=== PATIENT | male | born 1965 | race Caucasian/White ===

== ENCOUNTER 2019-03-14 07:32 | Emergency (ER) | payer OTHER ==
[2019-03-14] MEDS ORDERED: Aspirin 81 MG Tab.Chew PO ONE (07:46)
--- NOTE | 2019-03-14 07:46 | EDM.PDOC ---
ED HPI GENERAL MEDICAL PROBLEM - General Stated Complaint: CHEST PAIN Time Seen by Provider: 03/14/19 07:32 Source of Information: Reports: Patient, Family History Limitations: Reports: No Limitations - History of Present Illness INITIAL COMMENTS - FREE TEXT/NARRATIVE: 53 y.o.w.m smokes daily and drinks daily a 6 pack of beer. He is a [employer]. He called 911 last night, the EMS checked him out and said he has anxiety. Pt decided to stay home. This Morning, the pt noticed again chest pain with pain with pressure going down his left arm. Pt"s neighbor brought him to the the ED. Pt stated, he has no pain but burning sensations ant chest and left arm. Pt is using marijuana daily. His last ETOH intake was last night at about 10 pm. Pt says he is very anxious. No N/V/D, no dizziness, no diaphoresis. Pt was diaphoretic last week at one time, no CP at that time. No SOP, no other acute med. issues. BP 150/95 RR 18 Pulse ox 98% on RA, Pulse 98 Temp 37.0 Onset Date: 03/13/19 Onset Time: 22:55 Duration: Hour(s):, Getting Worse, Intermittent Location: Reports: Chest Quality: Reports: Burning, Dull Severity: Moderate Improves with: Reports: Medication Worsens with: Reports: None Context: Reports: Other Associated Symptoms: Reports: Chest Pain, Diaphoresis (a few days ago) - Related Data Allergies Allergy/AdvReac Type Severity Reaction Status Date / Time cephalexin Allergy Redness Verified 03/14/19 08:24 cyclobenzaprine Allergy Anxiety Verified 03/14/19 08:24 [From Flexeril] dextromethorphan Allergy Anxiety Verified 03/14/19 08:24 morphine Allergy Itching Verified 03/14/19 08:24 Home Meds: Home Meds Gabapentin [Neurontin] 1,800 mg PO DAILY 03/14/19 [History] Metoprolol Succinate 200 mg PO DAILY 03/14/19 [History] Omeprazole 10 mg PO DAILY 03/14/19 [History] buPROPion [Wellbutrin] 75 mg PO BEDTIME 03/14/19 [History] ED ROS GENERAL - Review of Systems Review Of Systems: See Below Constitutional: Reports: No Symptoms HEENT: Reports: Other (H/O basal cell CA) Respiratory: Reports: No Symptoms Cardiovascular: Reports: Chest Pain (with left arm numbness) Endocrine: Reports: No Symptoms GI/Abdominal: Reports: No Symptoms : Reports: No Symptoms Musculoskeletal: Reports: No Symptoms Skin: Reports: No Symptoms Neurological: Reports: No Symptoms Psychiatric: Reports: No Symptoms Hematologic/Lymphatic: Reports: No Symptoms Immunologic: Reports: No Symptoms ED EXAM, GENERAL - Physical Exam Exam: See Below Exam Limited By: No Limitations General Appearance: Alert, WD/WN, Mild Distress Eye Exam: Bilateral Eye: Normal Inspection Ears: Normal External Exam Ear Exam: Bilateral Ear: Auricle Normal Nose: Normal Mucosa, No Blood, Other (Surgigal wound from a Skin Bx) Throat/Mouth: Normal Lips, Normal Voice, No Airway Compromise Head: Atraumatic, Normocephalic Neck: Normal Inspection, Supple, Non-Tender Respiratory/Chest: No Respiratory Distress, Lungs Clear, Normal Breath Sounds, Chest Non-Tender Cardiovascular: Normal Peripheral Pulses, Regular Rate, Rhythm, No Edema, No Gallop, No Murmur, No Rub Peripheral Pulses: 1+: Brachial (R) GI/Abdominal: Normal Bowel Sounds, Soft, Non-Tender, No Organomegaly, No Mass, Pelvis Stable (Male) Exam: Deferred Rectal (Males) Exam: Deferred Back Exam: Normal Inspection, Full Range of Motion Extremities: Normal Inspection, Normal Range of Motion, Non-Tender Neurological: Alert, Oriented, CN II-XII Intact, Normal Cognition, Normal Gait Psychiatric: Normal Affect, Anxious, Other (ETOH with drawel) Skin Exam: Warm, Dry, Normal Color, No Rash, Wound/Incision (Surgical wound right nose) Lymphatic: No Adenopathy EKG INTERPRETATION EKG Date: 03/14/19 Time: 07:35 Rhythm: NSR Rate (Beats/Min): 98 [place]: Normal P-Wave: Present QRS: Normal ST-T: Normal QT: Normal Comparison: NA - No Prior EKG (2nd ECG taken at 10.38: NSR Rate 90 NV [address]/T wave changes) EKG Interpretation Comments: 2nd EC03/14/2019 10.38 NSR. Rate 90 NV [address]Tc [address]/T wave changes Course - Vital Signs Text/Narrative:: 53 y.o.w.m smokes daily and drinks daily a 6 pack of beer. He is a [employer]. He called 911 last night, the EMS checked him out and said he has anxiety. Pt decided to stay home. This Morning, the pt noticed again chest pain with pain with pressure going down his left arm. Pt"s neighbor brought him to the the ED. Pt stated, he has no pain but burning sensations ant chest and left arm. Pt is using marijuana daily. His last ETOH intake was last night at about 10 pm. Pt says he is very anxious. No N/V/D, no dizziness, no diaphoresis. Pt was diaphoretic last week at one time, no CP at that time. No SOP, no other acute med. issues. BP 150/95 RR 18 Pulse ox 98% on RA, Pulse 98 Temp 37.0 PE: WNWD W M with ETOH withdrawal, Chest and left arm "burning" Imaging: CXR: NAD Labs: ETOH 0.24 UDS pos for Marijuana, Troponin: 0.017 at 7.30am and 10.20am ( 2 tests) CBC nl except MCV was 98 HCT 54 BMP was NL except GLC was 119 Ca 8.5 D Dimer was nl BUN/CR ration was 6.7 Impression: Atypical chest pain, ETOH withdrawal, anxiety UDS positive for Marijuana, H/O ETOH dependency Tx: NS. Thiamin, Folic acid and MVT. Ativan 2 mg total, ASA on arrival Last Recorded V/S: Last Vital Signs Temp 37.0 C 03/14/19 07:35 Pulse 98 03/14/19 07:35 Resp 18 03/14/19 07:35 BP 150/95 H 03/14/19 07:35 Pulse Ox 98 03/14/19 07:35 - Orders/Labs/Meds Orders: Active Orders 24 hr Category Date Time Status EKG Documentation Completion [RC] ASDIRECTED Care 03/14/19 07:51 Active EKG Documentation Completion [RC] ASDIRECTED Care 03/14/19 10:28 Active TROPONIN I [CHEM] Stat Lab 03/14/19 10:28 Ordered Sodium Chloride 0.9% [Normal Saline] 1,000 ml Med 03/14/19 08:30 Active IV ASDIRECTED EKG 12 Lead [EK] Routine Ther 03/14/19 07:50 Ordered EKG 12 Lead [EK] Routine Ther 03/14/19 10:28 Ordered Medication Orders Sodium Chloride (Normal Saline) 1,000 mls @ 999 mls/hr IV ASDIRECTED SANDY Last Admin: 03/14/19 08:15 Dose: 999 mls/hr Labs: Laboratory Tests 03/14/19 03/14/19 03/14/19 Range/Units 07:55 07:55 07:55 WBC 6.2 (4.5-12.0) X10-3/uL RBC 5.30 (4.30-5.75) x10(6)uL Hgb 17.7 (13.5-17.8) g/dL Hct 52.5 H (30.0-51.3) % MCV 98.9 H (80-96) fL MCH 33.3 (27.7-33.6) pg MCHC 33.7 (32.2-35.4) g/dL RDW 15.3 (11.5-15.5) % Plt Count 284 (125-369) X10(3)uL MPV 8.0 (7.4-10.4) fL Neut % (Auto) 47.7 (46-82) % Lymph % (Auto) 38.7 H (13-37) % Cottle % (Auto) 10.4 (4-12) % Eos % (Auto) 2 (1.0-5.0) % Baso % (Auto) 1 (0-2) % Neut # (Auto) 3.0 (1.6-8.3) # Lymph # (Auto) 2.4 (0.6-5.0) # Cottle # (Auto) 0.6 (0.0-1.3) # Eos # (Auto) 0.1 (0.0-0.8) # Baso # (Auto) 0.1 (0.0-0.2) # PT 10.4 (8.7-11.1) INR 1.07 (0.89-1.13) D-Dimer, Quantitative 0.54 (0.0-0.59) mg/LFEU Sodium 140 (135-145) mmol/L Potassium 3.9 (3.5-5.3) mmol/L Chloride 101 (100-110) mmol/L Carbon Dioxide 23 (21-32) mmol/L BUN 8 (7-18) mg/dL Creatinine 1.2 (0.70-1.30) mg/dL Est Cr Clr Drug Dosing TNP Estimated GFR (MDRD) > 60 (>60) BUN/Creatinine Ratio 6.7 L (9-20) Glucose 119 H (80-116) mg/dL Calcium 8.5 L (8.6-10.2) mg/dL Troponin I (<0.017-0.056) ng/mL TSH, Ultra Sensitive (0.36-3.74) IU/mL Urine Opiates Screen (NEGATIVE) Ur Oxycodone Screen (NEGATIVE) Ur Propoxyphene Screen (NEGATIVE) Ur Barbituates Screen (NEGATIVE) Ur Tricyclics Screen (NEGATIVE) Ur Phencyclidine Scrn (NEGATIVE) Ur Amphetamine Screen (NEGATIVE) Urine MDMA Screen (NEGATIVE) U Benzodiazepines Scrn (NEGATIVE) U Cocaine Metab Screen (NEGATIVE) U Marijuana (THC) Screen (NEGATIVE) Ethyl Alcohol (<0.03) % 03/14/19 03/14/19 03/14/19 Range/Units 07:55 07:55 07:55 WBC (4.5-12.0) X10-3/uL RBC (4.30-5.75) x10(6)uL Hgb (13.5-17.8) g/dL Hct (30.0-51.3) % MCV (80-96) fL MCH (27.7-33.6) pg MCHC (32.2-35.4) g/dL RDW (11.5-15.5) % Plt Count (125-369) X10(3)uL MPV (7.4-10.4) fL Neut % (Auto) (46-82) % Lymph % (Auto) (13-37) % Cottle % (Auto) (4-12) % Eos % (Auto) (1.0-5.0) % Baso % (Auto) (0-2) % Neut # (Auto) (1.6-8.3) # Lymph # (Auto) (0.6-5.0) # Cottle # (Auto) (0.0-1.3) # Eos # (Auto) (0.0-0.8) # Baso # (Auto) (0.0-0.2) # PT (8.7-11.1) INR (0.89-1.13) D-Dimer, Quantitative (0.0-0.59) mg/LFEU Sodium (135-145) mmol/L Potassium (3.5-5.3) mmol/L Chloride (100-110) mmol/L Carbon Dioxide (21-32) mmol/L BUN (7-18) mg/dL Creatinine (0.70-1.30) mg/dL Est Cr Clr Drug Dosing Estimated GFR (MDRD) (>60) BUN/Creatinine Ratio (9-20) Glucose (80-116) mg/dL Calcium (8.6-10.2) mg/dL Troponin I < 0.017 L (<0.017-0.056) ng/mL TSH, Ultra Sensitive 2.67 (0.36-3.74) IU/mL Urine Opiates Screen (NEGATIVE) Ur Oxycodone Screen (NEGATIVE) Ur Propoxyphene Screen (NEGATIVE) Ur Barbituates Screen (NEGATIVE) Ur Tricyclics Screen (NEGATIVE) Ur Phencyclidine Scrn (NEGATIVE) Ur Amphetamine Screen (NEGATIVE) Urine MDMA Screen (NEGATIVE) U Benzodiazepines Scrn (NEGATIVE) U Cocaine Metab Screen (NEGATIVE) U Marijuana (THC) Screen (NEGATIVE) Ethyl Alcohol 0.20 H* (<0.03) % 03/14/19 Range/Units 09:51 WBC (4.5-12.0) X10-3/uL RBC (4.30-5.75) x10(6)uL Hgb (13.5-17.8) g/dL Hct (30.0-51.3) % MCV (80-96) fL MCH (27.7-33.6) pg MCHC (32.2-35.4) g/dL RDW (11.5-15.5) % Plt Count (125-369) X10(3)uL MPV (7.4-10.4) fL Neut % (Auto) (46-82) % Lymph % (Auto) (13-37) % Cottle % (Auto) (4-12) % Eos % (Auto) (1.0-5.0) % Baso % (Auto) (0-2) % Neut # (Auto) (1.6-8.3) # Lymph # (Auto) (0.6-5.0) # Cottle # (Auto) (0.0-1.3) # Eos # (Auto) (0.0-0.8) # Baso # (Auto) (0.0-0.2) # PT (8.7-11.1) INR (0.89-1.13) D-Dimer, Quantitative (0.0-0.59) mg/LFEU Sodium (135-145) mmol/L Potassium (3.5-5.3) mmol/L Chloride (100-110) mmol/L Carbon Dioxide (21-32) mmol/L BUN (7-18) mg/dL Creatinine (0.70-1.30) mg/dL Est Cr Clr Drug Dosing Estimated GFR (MDRD) (>60) BUN/Creatinine Ratio (9-20) Glucose (80-116) mg/dL Calcium (8.6-10.2) mg/dL Troponin I (<0.017-0.056) ng/mL TSH, Ultra Sensitive (0.36-3.74) IU/mL Urine Opiates Screen Negative (NEGATIVE) Ur Oxycodone Screen Negative (NEGATIVE) Ur Propoxyphene Screen Negative (NEGATIVE) Ur Barbituates Screen Negative (NEGATIVE) Ur Tricyclics Screen Negative (NEGATIVE) Ur Phencyclidine Scrn Negative (NEGATIVE) Ur Amphetamine Screen Negative (NEGATIVE) Urine MDMA Screen Negative (NEGATIVE) U Benzodiazepines Scrn Negative (NEGATIVE) U Cocaine Metab Screen Negative (NEGATIVE) U Marijuana (THC) Screen Positive H (NEGATIVE) Ethyl Alcohol (<0.03) % Meds: Medications Generic Name Dose Route Start Last Admin Trade Name Freq PRN Reason Stop Dose Admin Sodium Chloride 1,000 mls @ 999 mls/hr 03/14/19 08:30 03/14/19 08:15 Normal Saline IV 999 mls/hr ASDIRECTED SANDY Administration Discontinued Medications Generic Name Dose Route Start Last Admin Trade Name Freq PRN Reason Stop Dose Admin Aspirin 324 mg 03/14/19 07:46 03/14/19 07:48 Aspirin PO 03/14/19 07:47 324 mg ONETIME ONE Administration Folic Acid 1 mg 03/14/19 08:33 03/14/19 08:51 Folic Acid PO 03/14/19 08:34 1 mg ONETIME ONE Administration Sodium Chloride 1,000 mls @ 999 mls/hr 03/14/19 09:22 03/14/19 09:20 Normal Saline IV 03/14/19 10:22 999 mls/hr .BOLUS ONE Administration Lorazepam 1 mg 03/14/19 08:35 03/14/19 08:59 Ativan IVPUSH 03/14/19 08:36 1 mg ONETIME ONE Administration Lorazepam 1 mg 03/14/19 09:42 03/14/19 09:58 Ativan IVPUSH 03/14/19 09:43 1 mg ONETIME ONE Administration Multivitamins/Minerals/Vitamin C 1 tab 03/14/19 08:33 03/14/19 08:51 Tab-A-Kateryna PO 03/14/19 08:34 1 tab ONETIME STA Administration Thiamine HCl 100 mg 03/14/19 08:33 03/14/19 08:51 Vitamin B-1 PO 03/14/19 08:34 100 mg ONETIME ONE Administration Departure - Departure Time of Disposition: 10:50 Disposition: Home, Self-Care 01 Condition: Good Clinical Impression: Atypical chest pain Elevated ETOH level Qualifiers: Blood alcohol level: 20-39 mg/100 ml Qualified Code(s): Y90.1 - Blood alcohol level of 20-39 mg/100 ml Alcohol withdrawal Qualifiers: Complication of substance-induced condition: uncomplicated Qualified Code(s): F10.230 - Alcohol dependence with withdrawal, uncomplicated Referrals: PCP,Unknown [Ordering Only Provider] - Additional Instructions: Please avoid ETOH, please tale Multivitamins, Thiamin and folic acid daily. Please increase water intake. Please f/u with your PMD to be scheduled for an exercise stress test (EST) as an out patient - My Orders Last 24 Hours: My Active Orders 03/14/19 07:50 EKG 12 Lead [EK] Routine 03/14/19 07:51 EKG Documentation Completion [RC] ASDIRECTED 03/14/19 08:30 Sodium Chloride 0.9% [Normal Saline] 1,000 ml IV ASDIRECTED 03/14/19 10:28 EKG Documentation Completion [RC] ASDIRECTED TROPONIN I [CHEM] Stat EKG 12 Lead [EK] Routine - Assessment/Plan Last 24 Hours: My Active Orders 03/14/19 07:50 EKG 12 Lead [EK] Routine 03/14/19 07:51 EKG Documentation Completion [RC] ASDIRECTED 03/14/19 08:30 Sodium Chloride 0.9% [Normal Saline] 1,000 ml IV ASDIRECTED 03/14/19 10:28 EKG Documentation Completion [RC] ASDIRECTED TROPONIN I [CHEM] Stat EKG 12 Lead [EK] Routine
[2019-03-14] MEDS ORDERED: Sodium Chloride 0.9% 10 ML Syringe FLUSH PRN (08:00)
[2019-03-14] MEDS ORDERED: Sodium Chloride 0.9% 1,000 ML IV SCH (08:30)
[2019-03-14] MEDS ORDERED: Folic Acid 1 MG Tab PO ONE (08:33)
[2019-03-14] MEDS ORDERED: Multivitamin Tab PO STA (08:33)
[2019-03-14] MEDS ORDERED: Thiamine 100 MG Tab PO ONE (08:33)
[2019-03-14] MEDS ORDERED: LORazepam 2 MG/ML SDV IVPUSH ONE ×2 (08:35→09:42)
[2019-03-14] MEDS ORDERED: Sodium Chloride 0.9% 1,000 ML IV ONE (09:22)
== END 2019-03-14 11:30 | disposition home or self-care (01) ==
LOC: FB.ED 07:32
DX: R07.89 Other chest pain (principal); F10.230 Alcohol dependence with withdrawal, uncomplicated; Y90.1 Blood alcohol level of 20-39 mg/100 ml; F41.9 Anxiety disorder, unspecified; F12.929 Cannabis use, unspecified with intoxication, unspecified; Z88.1 Allergy status to other antibiotic agents; Z88.5 Allergy status to narcotic agent; Z88.8 Allergy status to other drugs, medicaments and biological substances; Z79.899 Other long term (current) drug therapy
CPT/HCPCS: 36415; 80048; 80305; 84443; 84484; 85025; 85379; 85610; 93005; 96361; 96374; 96376; 99284; A9270; G0480; J2060; J7030; 93010

== ENCOUNTER 2019-05-26 12:50 | Emergency (ER) | payer OTHER ==
--- NOTE | 2019-05-26 13:13 | EDM.PDOC ---
ED HPI GENERAL MEDICAL PROBLEM - General Stated Complaint: ABDOMINAL PAIN,VOMITING Time Seen by Provider: 05/26/19 13:10 Source of Information: Reports: Patient History Limitations: Reports: No Limitations - History of Present Illness INITIAL COMMENTS - FREE TEXT/NARRATIVE: 53-year-old male who reports onset of upper abdominal pain at approximately midnight last night. It was a mild aching pain and has progressively worsened with time and has become a sharp and shooting pain with some radiation to his back. The pain is now diffuse but mostly in his upper abdomen and more so on the right upper abdomen and epigastrium. He rates the pain as an 8/10. It is also associated with vomiting which she has had vomiting 6. The emesis has been nonbloody and nonbilious. He last had a bowel movement 2 days ago which was normal. He had no bowel movement today. He has been passing some flatus. No dysuria. No hematuria. No chest pain. No shortness of breath. No cough. No fevers. He has never had pain like this before. There are no other associated signs or symptoms. There are no other modifying factors. Onset: Today (Around midnight) Duration: Getting Worse Location: Reports: Abdomen Quality: Reports: Ache, Sharp, Stabbing Severity: Moderate (to severe) Improves with: Reports: None Worsens with: Reports: Other (Palpation. 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: Other (see below) (simethicon and omeprazole) abdomen Pain Score (Numeric/FACES): 4 - Related Data Allergies Allergy/AdvReac Type Severity Reaction Status Date / Time cephalexin Allergy Redness Verified 05/26/19 14:00 cyclobenzaprine Allergy Anxiety Verified 05/26/19 14:00 [From Flexeril] dextromethorphan Allergy Anxiety Verified 05/26/19 14:00 morphine Allergy Itching Verified 05/26/19 14:00 Home Meds: Home Meds Gabapentin [Neurontin] 1,800 mg PO DAILY 03/14/19 [History] Metoprolol Succinate 200 mg PO DAILY 03/14/19 [History] Omeprazole 10 mg PO DAILY 03/14/19 [History] Past Medical History Genitourinary History: Reports: Other (See Below) (Varicocele) Psychiatric History: Reports: Addiction, Anxiety, Depression, Panic Attack, PTSD Other Psychiatric History: alcohol withdrawal - Past Surgical History HEENT Surgical History: Reports: Tonsillectomy (and adenoidectomy) GI Surgical History: Reports: Appendectomy, Cholecystectomy Musculoskeletal Surgical History: Reports: Shoulder Surgery (Bilateral shoulder surgery) Other Musculoskeletal Surgeries/Procedures:: shoulder surgery, tendon surgery Social & Family History - Family History Family Medical History: Unobtainable - Tobacco Use Smoking Status *Q: Current Every Day Smoker - Caffeine Use Caffeine Use: Reports: None - Alcohol Use Alcohol Use History: Yes Alcohol Use Frequency: Daily (Six pack of beer or more every day) - Recreational Drug Use Recreational Drug Use: Yes Recreational Drug Type: Reports: Marijuana/Hashish - Living Situation & Occupation Living situation: Reports: Social History Comment: He is here with his . ED ROS GENERAL - Review of Systems Review Of Systems: See Below Constitutional: Reports: No Symptoms HEENT: Reports: No Symptoms Respiratory: Reports: No Symptoms Cardiovascular: Reports: No Symptoms Endocrine: Reports: No Symptoms GI/Abdominal: Reports: Abdominal Pain, Nausea, Vomiting : Reports: No Symptoms. Denies: Dysuria, Flank Pain, Hematuria Musculoskeletal: Reports: No Symptoms Skin: Reports: No Symptoms Neurological: Reports: No Symptoms Hematologic/Lymphatic: Reports: No Symptoms Immunologic: Reports: No Symptoms ED EXAM, GI/ABD - Physical Exam Exam: See Below Exam Limited By: No Limitations General Appearance: Alert, WD/WN, Moderate Distress Eyes: Bilateral: Normal Appearance, EOMI Ears: Normal External Exam, Hearing Grossly Normal Nose: Normal Inspection, Normal Mucosa, No Blood Throat/Mouth: Normal Lips, Normal Voice, No Airway Compromise, Other (Somewhat dry mucous membranes) Head: Atraumatic, Normocephalic Neck: Normal Inspection, Supple, Non-Tender, Full Range of Motion Respiratory/Chest: No Respiratory Distress, Lungs Clear, Normal Breath Sounds, No Accessory Muscle Use, Chest Non-Tender Cardiovascular: Normal Peripheral Pulses, Regular Rate, Rhythm, No Edema, No Murmur GI/Abdominal Exam: Soft, No Mass, Pelvis Stable, Tender (Diffusely but more so in the upper abdomen on both sides and in the epigastrium.), Abnormal Bowel Sounds (Diminished). No: Rigid, Rebound (Male) Exam: No Hernia Back Exam: Normal Inspection, Full Range of Motion Extremities: Normal Inspection, Normal Range of Motion, Non-Tender, Normal Capillary Refill, No Pedal Edema Neurological: Alert, Oriented, CN II-XII Intact, Normal Cognition, No Motor/ Sensory Deficits Psychiatric: Anxious Skin Exam: Warm, Dry, Intact, Normal Color, No Rash Lymphatic: No Adenopathy EKG INTERPRETATION EKG Date: 05/26/19 Time: 16:12 Rhythm: NSR Rate (Beats/Min): 71 [place]: Normal P-Wave: Present QRS: Normal ST-T: Other (Early repolarization) QT: Normal Comparison: No Change (From EKG performed on 03/14/2019.) Course - Vital Signs Last Recorded V/S: Last Vital Signs Temp 36.3 C 05/26/19 12:50 Pulse 88 05/26/19 16:45 Resp 16 05/26/19 16:45 BP 156/99 H 05/26/19 16:45 Pulse Ox 99 05/26/19 16:45 - Orders/Labs/Meds Orders: Active Orders 24 hr Category Date Time Status EKG Documentation Completion [RC] ASDIRECTED Care 05/26/19 15:59 Active Abdomen Pelvis w Cont [CT] Stat Exams 05/26/19 16:52 Taken Peripheral IV Insertion Adult [OM.PC] Routine Oth 05/26/19 13:21 Ordered EKG 12 Lead [EK] Routine Ther 05/26/19 15:59 Ordered Labs: Laboratory Tests 05/26/19 05/26/19 05/26/19 Range/Units 13:25 13:25 13:25 WBC 19.4 H (4.5-12.0) X10-3/uL RBC 5.32 (4.30-5.75) x10(6)uL Hgb 18.2 H (13.5-17.8) g/dL Hct 54.7 H (30.0-51.3) % MCV 102.8 H (80-96) fL MCH 34.2 H (27.7-33.6) pg MCHC 33.3 (32.2-35.4) g/dL RDW 15.8 H (11.5-15.5) % Plt Count 231 (125-369) X10(3)uL MPV 8.1 (7.4-10.4) fL Neut % (Auto) 80.5 (46-82) % Lymph % (Auto) 9.1 L (13-37) % Wells % (Auto) 8.4 (4-12) % Eos % (Auto) 1 (1.0-5.0) % Baso % (Auto) 1 (0-2) % Neut # (Auto) 15.6 H (1.6-8.3) # Lymph # (Auto) 1.8 (0.6-5.0) # Wells # (Auto) 1.6 H (0.0-1.3) # Eos # (Auto) 0.2 (0.0-0.8) # Baso # (Auto) 0.2 (0.0-0.2) # Sodium 137 (135-145) mmol/L Potassium 2.6 L* D (3.5-5.3) mmol/L Chloride 95 L D (100-110) mmol/L Carbon Dioxide 26 (21-32) mmol/L BUN 7 (7-18) mg/dL Creatinine 1.3 (0.70-1.30) mg/dL Est Cr Clr Drug Dosing TNP Estimated GFR (MDRD) 58 L (>60) BUN/Creatinine Ratio 5.4 L (9-20) Glucose 163 H (80-116) mg/dL Calcium 9.7 (8.6-10.2) mg/dL Total Bilirubin 1.6 H (0.1-1.3) mg/dL AST 77 H (5-25) IU/L ALT 67 H (12-36) U/L Alkaline Phosphatase 91 (56-112) IU/L C-Reactive Protein 1.3 H (0.5-0.9) mg/dL Total Protein 8.3 H (6.0-8.0) g/dL Albumin 3.8 (3.5-5.2) g/dL Globulin 4.5 g/dL Albumin/Globulin Ratio 0.8 Lipase 92322 H (73-393) U/L Urine Color (YELLOW) Urine Appearance (CLEAR) Urine pH (5.0-6.5) Ur Specific [place] (1.010-1.025) Urine Protein (NEGATIVE) mg/dL Urine Glucose (UA) (NORMAL) mg/dL Urine Ketones (NEGATIVE) mg/dL Urine Occult Blood (NEGATIVE) Urine Nitrite (NEGATIVE) Urine Bilirubin (NEGATIVE) Urine Urobilinogen (NEGATIVE) mg/dL Ur Leukocyte Esterase (NEGATIVE) Urine RBC (0-5) Urine WBC (0-5) Ur Squamous Epith Cells (NS,R,O) Urine Bacteria (NS) 05/26/19 Range/Units 15:30 WBC (4.5-12.0) X10-3/uL RBC (4.30-5.75) x10(6)uL Hgb (13.5-17.8) g/dL Hct (30.0-51.3) % MCV (80-96) fL MCH (27.7-33.6) pg MCHC (32.2-35.4) g/dL RDW (11.5-15.5) % Plt Count (125-369) X10(3)uL MPV (7.4-10.4) fL Neut % (Auto) (46-82) % Lymph % (Auto) (13-37) % Wells % (Auto) (4-12) % Eos % (Auto) (1.0-5.0) % Baso % (Auto) (0-2) % Neut # (Auto) (1.6-8.3) # Lymph # (Auto) (0.6-5.0) # Wells # (Auto) (0.0-1.3) # Eos # (Auto) (0.0-0.8) # Baso # (Auto) (0.0-0.2) # Sodium (135-145) mmol/L Potassium (3.5-5.3) mmol/L Chloride (100-110) mmol/L Carbon Dioxide (21-32) mmol/L BUN (7-18) mg/dL Creatinine (0.70-1.30) mg/dL Est Cr Clr Drug Dosing Estimated GFR (MDRD) (>60) BUN/Creatinine Ratio (9-20) Glucose (80-116) mg/dL Calcium (8.6-10.2) mg/dL Total Bilirubin (0.1-1.3) mg/dL AST (5-25) IU/L ALT (12-36) U/L Alkaline Phosphatase (56-112) IU/L C-Reactive Protein (0.5-0.9) mg/dL Total Protein (6.0-8.0) g/dL Albumin (3.5-5.2) g/dL Globulin g/dL Albumin/Globulin Ratio Lipase (73-393) U/L Urine Color Yellow (YELLOW) Urine Appearance Clear (CLEAR) Urine pH 8.0 H (5.0-6.5) Ur Specific [place] 1.010 (1.010-1.025) Urine Protein Negative (NEGATIVE) mg/dL Urine Glucose (UA) 50 H (NORMAL) mg/dL Urine Ketones 50 H (NEGATIVE) mg/dL Urine Occult Blood Negative (NEGATIVE) Urine Nitrite Negative (NEGATIVE) Urine Bilirubin Negative (NEGATIVE) Urine Urobilinogen 1 H (NEGATIVE) mg/dL Ur Leukocyte Esterase Small H (NEGATIVE) Urine RBC 0-5 (0-5) Urine WBC 0-5 (0-5) Ur Squamous Epith Cells Occasional (NS,R,O) Urine Bacteria Few H (NS) Meds: Medications Discontinued Medications Generic Name Dose Route Start Last Admin Trade Name Freq PRN Reason Stop Dose Admin Hydromorphone HCl 1 mg 05/26/19 13:22 05/26/19 13:44 Dilaudid IVPUSH 05/26/19 13:23 1 mg ONETIME ONE Administration Hydromorphone HCl 1 mg 05/26/19 16:11 05/26/19 16:36 Dilaudid IVPUSH 05/26/19 16:12 1 mg ONETIME ONE Administration Sodium Chloride 1,000 mls @ 999 mls/hr 05/26/19 13:22 05/26/19 13:40 Normal Saline IV 05/26/19 14:22 999 mls/hr .BOLUS ONE Administration Sodium Chloride 1,000 mls @ 150 mls/hr 05/26/19 13:30 05/26/19 14:40 Normal Saline IV 150 mls/hr ASDIRECTED SANDY Administration Potassium Chloride 10 meq/ 100 mls @ 100 mls/hr 05/26/19 13:55 05/26/19 14:05 Premix IV 05/26/19 14:54 50 mls/hr ONETIME ONE Administration Potassium Chloride 10 meq/ 100 mls @ 100 mls/hr 05/26/19 16:13 05/26/19 16:36 Premix IV 05/26/19 17:12 100 mls/hr ONETIME ONE Administration Iopamidol 100 ml 05/26/19 14:28 05/26/19 14:38 Isovue-370 (76%) IV 05/26/19 14:29 100 ml ONETIME ONE Administration Lorazepam 1 mg 05/26/19 14:19 05/26/19 16:37 Ativan IVPUSH 05/26/19 14:20 Not Given ONETIME ONE Lorazepam 1 mg 05/26/19 16:11 05/26/19 16:35 Ativan IVPUSH 05/26/19 16:12 1 mg ONETIME ONE Administration Ondansetron HCl 4 mg 05/26/19 13:22 05/26/19 13:40 Zofran IVPUSH 05/26/19 13:23 4 mg ONETIME ONE Administration Ondansetron HCl 4 mg 05/26/19 16:28 05/26/19 16:43 Zofran IVPUSH 05/26/19 16:29 4 mg ONETIME ONE Administration Sodium Chloride 10 ml 05/26/19 13:21 05/26/19 13:40 Saline Flush FLUSH 10 ml ASDIRECTED PRN Administration Keep Vein Open - Re-Assessments/Exams Free Text/Narrative Re-Assessment/Exam: 05/26/19 14:00: Patient with improvement in his symptoms with the IV fluids and IV pain medicine and antinausea medicine. His white blood cell count is 19.4 thousand and his lipase is elevated. He also has a potassium of 2.6. I have ordered potassium 10 mEq to be given IV. I will send the patient for CT scan of his abdomen and pelvis with IV contrast. Patient also with persistently elevated blood pressure and he is supposed to be on clonazepam. He feels quite anxious and I will give the patient Ativan 1 mg IV. 05/26/19 15:40: CT scan of the patient's abdomen and pelvis shows acute pancreatitis. There were no other abnormalities seen on the CT scan. The patient 's lipase was approximately 33,000. He is feeling somewhat improved but still has fairly significant abdominal pain. He has had no further emesis. He is receiving potassium IV. He will need admission for IV fluid therapy, bowel rest , IV pain control, IV potassium replacement and anti-emetic therapy. This would not be amenable to outpatient treatment. The patient is followed through the [facility] in [place] and I will discuss the patient's case with the [facility] hospitalist in [place]. 05/26/19 15:55: I discussed patient's case with Dr. Dennis, hospitalist at the [facility] in [place] and he has agreed to accept the patient in transfer. The patient will be transferred via ambulance to the [facility] in [place] for direct admission. The patient is in agreement with the plans for transfer. 05/26/19 16:15: Patient with persistently elevated blood pressure and with continued feelings of anxiousness and pain that he is rating at 6-7/10. His first 10 mEq run of potassium has been given and I have ordered another 10 mEq IV run over the next hour. I have also ordered an additional dose of Dilaudid, 1 mg and Ativan, 1 mg to be given IV. Awaiting EMS transport. We will continue close monitoring. Departure - Departure Time of Disposition: 17:21 Disposition: DC/Tfer to Acute Hospital 02 Condition: Fair Clinical Impression: Hypokalemia, Dehydration, Alcohol abuse Acute pancreatitis Qualifiers: Pancreatitis type: alcohol induced Acute pancreatitis complication: no infection or necrosis Qualified Code(s): K85.20 - Alcohol induced acute pancreatitis without necrosis or infection - Discharge Information Referrals: PCP,None [Primary Care Provider] - Forms: ED Department Discharge - My Orders Last 24 Hours: My Active Orders 05/26/19 13:21 Peripheral IV Insertion Adult [OM.PC] Routine 05/26/19 15:59 EKG Documentation Completion [RC] ASDIRECTED EKG 12 Lead [EK] Routine 05/26/19 16:52 Abdomen Pelvis w Cont [CT] Stat - Assessment/Plan Last 24 Hours: My Active Orders 05/26/19 13:21 Peripheral IV Insertion Adult [OM.PC] Routine 05/26/19 15:59 EKG Documentation Completion [RC] ASDIRECTED EKG 12 Lead [EK] Routine 05/26/19 16:52 Abdomen Pelvis w Cont [CT] Stat
[2019-05-26] MEDS: Ondansetron 4 MG/2 ML SDV IVPUSH ONE ×2 (13:40→16:43)
[2019-05-26] MEDS: Sodium Chloride 0.9% 1,000 ML IV ONE (13:40)
[2019-05-26] MEDS: Sodium Chloride 0.9% 10 ML Syringe FLUSH PRN (13:40)
[2019-05-26] MEDS: HYDROmorphone 2 MG/ML SDV IVPUSH ONE ×2 (13:44→16:36)
[2019-05-26] MEDS: Potassium Chloride 10 MEQ in Premix Bag 1 BAG IV ONE ×2 (14:05→16:36)
[2019-05-26] MEDS: Iopamidol 755 Mg/ML 100 ML Bottle IV ONE (14:38)
[2019-05-26] MEDS: Sodium Chloride 0.9% 1,000 ML IV SCH (14:40)
[2019-05-26] MEDS: LORazepam 2 MG/ML SDV IVPUSH ONE ×2 (16:35→16:37)
== END 2019-05-26 17:21 ==
LOC: FB.ED 12:50
DX: E87.6 Hypokalemia (principal); E86.0 Dehydration; F10.10 Alcohol abuse, uncomplicated; K85.20 Alcohol induced acute pancreatitis without necrosis or infection; F17.200 Nicotine dependence, unspecified, uncomplicated
CPT/HCPCS: 36415; 74177; 80053; 81001; 83690; 85025; 86140; 93005; 96361; 96365; 96366; 96375; 96376; 99285; J1170; J2060; J2405; J3480; J7030; Q9967

== ENCOUNTER 2019-10-29 10:50 | Emergency (ER) | payer OTHER ==
--- NOTE | 2019-10-29 10:58 | EDM.PDOC ---
ED HPI GENERAL MEDICAL PROBLEM - General Time Seen by Provider: 10/29/19 10:50 Source of Information: Reports: Patient History Limitations: Reports: No Limitations - History of Present Illness INITIAL COMMENTS - FREE TEXT/NARRATIVE: c/o R rib pain comes in via EMS, fell yesterday, struck R lateral ribs on curb, thinks they are fractured last labs abnormal 07/03, including low K, will repeat seen for pancreatitis 07/03 state he drinks 2 6-packs/wk, did drink bourbon after the fall to dull the pain , took no pain meds only daily med is omeprazole lives alone, not working, student, PCP is Dr Gilliland at [facility] in [place] pain 04/24 when EMS arrived, now 03/24 after EMS gave him 0.5 mg Dilaudid - Related Data Allergies Allergy/AdvReac Type Severity Reaction Status Date / Time cephalexin Allergy Redness Verified 05/26/19 14:00 cyclobenzaprine Allergy Anxiety Verified 05/26/19 14:00 [From Flexeril] dextromethorphan Allergy Anxiety Verified 05/26/19 14:00 morphine Allergy Itching Verified 05/26/19 14:00 Home Meds: Home Meds Gabapentin [Neurontin] 1,800 mg PO DAILY 03/14/19 [History] Metoprolol Succinate 200 mg PO DAILY 03/14/19 [History] Omeprazole 10 mg PO DAILY 03/14/19 [History] Magnesium Oxide [Magnesium] 400 mg PO BID #60 tablet 10/29/19 [Rx] Potassium Chloride [Klor-Con M20] 20 meq PO BID #20 tab.er 10/29/19 [Rx] traMADol HCl [Tramadol HCl] 50 mg PO Q6H PRN #15 tablet 10/29/19 [Rx] Past Medical History Other HEENT History: basal cell carcinoma in the nose Other Cardiovascular History: left varicocele Genitourinary History: Reports: Other (See Below) (Varicocele) Psychiatric History: Reports: Addiction, Anxiety, Depression, Panic Attack, PTSD Other Psychiatric History: alcohol withdrawal - Past Surgical History HEENT Surgical History: Reports: Tonsillectomy (and adenoidectomy) GI Surgical History: Reports: Appendectomy, Cholecystectomy Musculoskeletal Surgical History: Reports: Shoulder Surgery (Bilateral shoulder surgery) Other Musculoskeletal Surgeries/Procedures:: shoulder surgery, tendon surgery Social & Family History - Family History Family Medical History: Unobtainable - Caffeine Use Caffeine Use: Reports: None - Living Situation & Occupation Living situation: Reports: ED ROS GENERAL - Review of Systems Review Of Systems: See Below Constitutional: Reports: No Symptoms HEENT: Reports: No Symptoms Respiratory: Reports: Other (R rib pain) Cardiovascular: Reports: No Symptoms Endocrine: Reports: No Symptoms GI/Abdominal: Reports: No Symptoms : Reports: No Symptoms Musculoskeletal: Reports: No Symptoms Skin: Reports: No Symptoms Neurological: Reports: No Symptoms Psychiatric: Reports: No Symptoms Hematologic/Lymphatic: Reports: No Symptoms Immunologic: Reports: No Symptoms ED EXAM, GENERAL - Physical Exam Exam: See Below Exam Limited By: No Limitations General Appearance: Alert, WD/WN, No Apparent Distress Ears: Normal External Exam, Normal Canal, Hearing Grossly Normal Nose: Normal Inspection, Normal Mucosa, No Blood Throat/Mouth: Normal Inspection, Normal Lips, Normal Voice, No Airway Compromise Head: Atraumatic, Normocephalic Neck: Normal Inspection, Supple, Non-Tender, Full Range of Motion Respiratory/Chest: Other (holding R ribs with hand, talks in complete sentences , nonill, no dyspnea, no cough, good BS b/l, symmetric, 2+ tender over the lower 1/3 ribs laterally as well as posteriorly (referred pain), no swell, no ecchymosis) Cardiovascular: Regular Rate, Rhythm, No Edema GI/Abdominal: Soft, Non-Tender Back Exam: Normal Inspection, Full Range of Motion, NT Extremities: Normal Inspection, Non-Tender, No Pedal Edema Neurological: Alert, Oriented, CN II-XII Intact, Normal Cognition, No Motor/ Sensory Deficits Psychiatric: Normal Affect, Normal Mood Skin Exam: Warm, Dry, Intact, Normal Color, No Rash Lymphatic: No Adenopathy Course - Orders/Labs/Meds Orders: Active Orders 24 hr Category Date Time Status Ribs 3V wo Chest Lt [CR] Stat Exams 10/29/19 10:54 Taken Magnesium Sulfate [Magnesium Sulfate 50%] 2 gm Med 10/29/19 12:31 Ordered Dextrose 5% in Water 100 ml IV ONETIME Medication Orders Magnesium Sulfate 2 gm/ (Dextrose/Water) 104 mls @ 100 mls/hr IV ONETIME ONE Stop: 10/29/19 13:33 Labs: Laboratory Tests 10/29/19 10/29/19 10/29/19 Range/Units 11:00 11:00 11:00 WBC 11.2 (4.5-12.0) X10-3/uL RBC 4.67 (4.30-5.75) x10(6)uL Hgb 16.2 (13.5-17.8) g/dL Hct 49.0 (30.0-51.3) % MCV 104.9 H (80-96) fL MCH 34.7 H (27.7-33.6) pg MCHC 33.1 (32.2-35.4) g/dL RDW 17.7 H (11.5-15.5) % Plt Count 312 (125-369) X10(3)uL MPV 7.8 (7.4-10.4) fL Add Manual Diff Yes Neutrophils % (Manual) 69 (46-82) % Lymphocytes % (Manual) 23 (13-37) % Monocytes % (Manual) 4 (4-12) % Eosinophils % (Manual) 2 (0-5) % Basophils % (Manual) 2 (0-2) % Anisocytosis Few Macrocytosis Moderate H Sodium 145 (135-145) mmol/L Potassium 2.8 L* (3.5-5.3) mmol/L Chloride 104 D (100-110) mmol/L Carbon Dioxide 24 (21-32) mmol/L BUN 4 L (7-18) mg/dL Creatinine 1.0 (0.70-1.30) mg/dL Est Cr Clr Drug Dosing TNP Estimated GFR (MDRD) > 60 (>60) BUN/Creatinine Ratio 4.0 L (9-20) Glucose 175 H (80-116) mg/dL Calcium 8.3 L (8.6-10.2) mg/dL Magnesium 1.4 L (1.8-2.5) mg/dL Total Bilirubin 1.0 (0.1-1.3) mg/dL AST 170 H* D (5-25) IU/L ALT 108 H D (12-36) U/L Alkaline Phosphatase 134 H (56-112) IU/L Total Protein 7.8 (6.0-8.0) g/dL Albumin 3.3 L (3.5-5.2) g/dL Globulin 4.5 g/dL Albumin/Globulin Ratio 0.7 Meds: Medications Generic Name Dose Route Start Last Admin Trade Name Freq PRN Reason Stop Dose Admin Magnesium Sulfate 2 gm/ 104 mls @ 100 mls/hr 10/29/19 12:31 Dextrose/Water IV 10/29/19 13:33 ONETIME ONE Discontinued Medications Generic Name Dose Route Start Last Admin Trade Name Joseq PRN Reason Stop Dose Admin Ketorolac Tromethamine 30 mg 10/29/19 11:01 10/29/19 11:09 Toradol IVPUSH 10/29/19 11:02 30 mg ONETIME ONE Administration Potassium Chloride 40 meq 10/29/19 11:57 Klor-Con M20 PO 10/29/19 11:58 ONETIME ONE - Re-Assessments/Exams Free Text/Narrative Re-Assessment/Exam: 10/29/19 12:42 fx of ribs 9 & [address] Vasques, lungs inflated pt not interested in hospitalization at [facility] or here has gone to AA twice, no sponsor not done outpt alc tx 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[employer], 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, does not want to miss school has had fx ribs in past is agreeable to outpatient alc tx, given info on [facility] [facility] as well as local AAs lab abnormalities discussed at length Departure - Departure Time of Disposition: 13:20 Disposition: DC/Tfer to Acute Hospital 02 Condition: Good Clinical Impression: Alcoholic hepatitis, Hypokalemia, Hypomagnesemia, Hyperglycemia, Alcohol abuse , Hypoalbuminemia, Macrocytosis Ribs, multiple fractures Qualifiers: Encounter type: initial encounter Fracture type: closed Laterality: left Qualified Code(s): S22.42XA - Multiple fractures of ribs, left side, initial encounter for closed fracture - Discharge Information *PRESCRIPTION DRUG MONITORING PROGRAM REVIEWED*: Not Applicable *COPY OF PRESCRIPTION DRUG MONITORING REPORT IN PATIENT ANDRESSA: Not Applicable Prescriptions: Magnesium Oxide [Magnesium] 400 mg PO BID #60 tablet Potassium Chloride [Klor-Con M20] 20 meq PO BID #20 tab.er traMADol HCl [Tramadol HCl] 50 mg PO Q6H PRN #15 tablet PRN Reason: Pain Instructions: Rib Fracture, Alcoholic Liver Disease, Alcoholic Hepatitis, What You Need to Know About Alcohol Abuse and Dependence, Adult Referrals: PCP,None [Ordering Only Provider] - Forms: ED Department Discharge Additional Instructions: For pain, take ibuprofen 200 mg 4 tabs 3 times a day. For pain, take acetaminophen 325 mg 2 tabs 3 times a day. For pain, use ice for 10 minutes every hour. For pain, take tramadol 50 mg 1 tab every 6 hours as needed. No alcohol within 8 hours of a tramadol. To replace potassium, take potassium 20 meq 1 tab 2 times a day for 10 days. To replace magnesium, take magnesium oxide 400 meq 1 tab 2 times a day for 2 months. See your doctor in 2-3 days. Follow up with [facility] [place] for outpatient Alcohol Support . See list of AA classes. May not be perfectly up to date. Sepsis Event Note - Focused Exam Date Exam was Performed: 10/29/19 Time Exam was Performed: 12:42 - My Orders Last 24 Hours: My Active Orders 10/29/19 10:54 Ribs 3V wo Chest Lt [CR] Stat 10/29/19 12:31 Magnesium Sulfate [Magnesium Sulfate 50%] 2 gm Dextrose 5% in Water 100 ml IV ONETIME - Assessment/Plan Last 24 Hours: My Active Orders 10/29/19 10:54 Ribs 3V wo Chest Lt [CR] Stat 10/29/19 12:31 Magnesium Sulfate [Magnesium Sulfate 50%] 2 gm Dextrose 5% in Water 100 ml IV ONETIME
[2019-10-29] MEDS ORDERED: Ketorolac 30 MG/ML SDV IVPUSH ONE (11:01)
[2019-10-29] MEDS ORDERED: Potassium Chloride 20 MEQ Tab.ER PO ONE (11:57)
[2019-10-29] MEDS ORDERED: HYDROmorphone 2 MG/ML SDV IVPUSH ONE (12:46)
--- NOTE | 2019-10-29 12:50 | CR ---
INDICATION: Fall 1 day ago. Hit left lateral ribs on curb. LEFT RIBS: Six images of the left ribs were obtained 10/29/19 - no comparisons. No evidence of an active infiltrate, effusion, contusion or pneumothorax was identified on the left. Posterolaterally, there is a transverse fracture through the 10th left rib with approximately 2.5 mm lateral offset of the distal fracture fragment. There is also laterally a transverse fracture through the 9th left rib with 1.5 mm lateral offset of the distal fracture fragment and slight angulation at the fracture site. No other bony abnormality was identified. Report was called to Dr. Gagnon at 11:43 hours. [id number]
[2019-10-29] MEDS ORDERED: Magnesium Sulfate/Water 50 ML IV ONE (13:00)
== END 2019-10-29 14:10 ==
LOC: FB.ED 10:50
DX: S22.42XA Multiple fractures of ribs, left side, initial encounter for closed fracture (principal); K70.10 Alcoholic hepatitis without ascites; E87.6 Hypokalemia; E83.42 Hypomagnesemia; F10.10 Alcohol abuse, uncomplicated; E88.09 Other disorders of plasma-protein metabolism, not elsewhere classified; D75.89 Other specified diseases of blood and blood-forming organs; R73.9 Hyperglycemia, unspecified; F41.9 Anxiety disorder, unspecified; F32.9 Major depressive disorder, single episode, unspecified; F43.10 Post-traumatic stress disorder, unspecified; Z79.899 Other long term (current) drug therapy; Z88.5 Allergy status to narcotic agent; Z88.1 Allergy status to other antibiotic agents; Z88.8 Allergy status to other drugs, medicaments and biological substances; W19.XXXA Unspecified fall, initial encounter
CPT/HCPCS: 36415; 71101; 80053; 83735; 85025; 96365; 96375; 99285; A9270; J1170; J1885; J3475

== ENCOUNTER 2020-10-10 03:33 | Emergency (ER) | payer OTHER ==
[2020-10-10] MEDS ORDERED: Ketorolac 30 MG/ML SDV IVPUSH ONE (04:36)
[2020-10-10] MEDS ORDERED: Sodium Chloride 0.9% 1,000 ML IV ONE (04:36)
[2020-10-10] MEDS ORDERED: Gabapentin 300 MG Cap PO ONE (04:37)
[2020-10-10] MEDS ORDERED: Alum Hydroxide/Mag Hydroxide 30 ML, Lidocaine 2% 15 ML PO ONE ×2 (04:37)
[2020-10-10] MEDS ORDERED: Ondansetron 4 MG/2 ML SDV IVPUSH ONE (04:38)
--- NOTE | 2020-10-10 04:53 | EDM.PDOC ---
ED HPI GENERAL MEDICAL PROBLEM - General Chief Complaint: Abdominal Pain Time Seen by Provider: 10/10/20 04:00 Source of Information: Reports: Patient History Limitations: Reports: No Limitations - History of Present Illness INITIAL COMMENTS - FREE TEXT/NARRATIVE: c/o abd pain 1st attack alcohol induced pancreatitis 16m ago, Jun 2019 with lipase 32k, 80x ULN has had recurrent attacks, still drinks alcohol last ate 3 tacos from [employer] at 4p, had "3 small shots" last night, at friend's house watching TV admitted 10/02 to 10/06 for acute on chronic pancreatitis, perviously admitted 09/27 to 09/30 for similar presentation, he returned to the ED in [place] yesterday evening and was sent home, lipase not repeated then per [place] records, lipase elevated to 176 on arrival to ED on 09/27 PMH: old R shoulder injury, alc abuse, chronic pancreatitis, pseudocysts MPMP with 4 fills oxycodone in past 2m, says he had 2 doses of oxycodone at home but was across town at friend's house, 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 Says he is scheduled to return to alc tx on 10/30 with a new cohort currently staying with a femal disabled vet who does not drink has gone to AA "a few times" in the past, has not done outpt alc tx did have pseudocysts on CT at last week, up to 2.9 cm, 2 were new, repeat CT last night with no change per pt weighed 220 lb 1y ago, now 153 lbs, says he loses wt when he goes from clears to full liquids to soft diet regimen - Related Data Allergies Allergy/AdvReac Type Severity Reaction Status Date / Time cephalexin Allergy Redness Verified 10/10/20 04:12 cyclobenzaprine Allergy Anxiety Verified 10/10/20 04:12 [From Flexeril] dextromethorphan Allergy Anxiety Verified 10/10/20 04:12 morphine Allergy Itching Verified 10/10/20 04:12 Home Meds: Home Meds Potassium Chloride [Klor-Con M20] 20 meq PO BID #20 tab.er 10/29/19 [Rx] Acetaminophen [Extra Strength Non-Aspirin] 1,000 mg PO TID 10/10/20 [History] Amylase/Lipase/Protease [Creon DR 24,000 Unit] 1 cap PO TID 10/10/20 [History] Calcium Carbonate [Tums] 500 mg PO ASDIRECTED PRN 10/10/20 [History] Doxepin [SINEquan] 10 mg PO BEDTIME 10/10/20 [History] Folic Acid 1 mg PO DAILY 10/10/20 [History] Magnesium Oxide 420 mg PO DAILY 10/10/20 [History] Pantoprazole Sodium [Protonix] 40 mg PO DAILY 10/10/20 [History] Sucralfate 1 gm PO TID 10/10/20 [History] buPROPion [Wellbutrin] 75 mg PO BEDTIME 10/10/20 [History] ondansetron HCL [Zofran] 4 mg PO TID PRN 10/10/20 [History] oxyCODONE 5 mg PO BID PRN 10/10/20 [History] Past Medical History Other HEENT History: basal cell carcinoma in the nose Other Cardiovascular History: left varicocele Genitourinary History: Reports: Other (See Below) (Varicocele) Psychiatric History: Reports: Addiction, Anxiety, Depression, Panic Attack, PTSD Other Psychiatric History: alcohol withdrawal - Past Surgical History HEENT Surgical History: Reports: Tonsillectomy GI Surgical History: Reports: Appendectomy, Cholecystectomy Musculoskeletal Surgical History: Reports: Shoulder Surgery Other Musculoskeletal Surgeries/Procedures:: shoulder surgery, tendon surgery Social & Family History - Family History Family Medical History: Unobtainable - Tobacco Use Tobacco Use Status *Q: Current Every Day Tobacco User Years of Tobacco use: 40 Packs/Tins Daily: 0.2 - Caffeine Use Caffeine Use: Reports: None - Alcohol Use Days Per Week of Alcohol Use: 1 Number of Drinks Per Day: 4 Total Drinks Per Week: 4 - Recreational Drug Use Recreational Drug Use: No - Living Situation & Occupation Living situation: Reports: ED ROS GENERAL - Review of Systems Review Of Systems: See Below Constitutional: Reports: No Symptoms HEENT: Reports: No Symptoms Respiratory: Reports: No Symptoms Cardiovascular: Reports: No Symptoms Endocrine: Reports: No Symptoms GI/Abdominal: Reports: Abdominal Pain, Nausea, Vomiting : Reports: No Symptoms Musculoskeletal: Reports: No Symptoms Skin: Reports: No Symptoms Neurological: Reports: No Symptoms Psychiatric: Reports: No Symptoms Hematologic/Lymphatic: Reports: No Symptoms Immunologic: Reports: No Symptoms ED EXAM, GI/ABD - Physical Exam Exam: See Below Exam Limited By: No Limitations General Appearance: Alert, WD/WN, No Apparent Distress Throat/Mouth: Normal Voice, No Airway Compromise Head: Atraumatic, Normocephalic Neck: Normal Inspection, Supple, Non-Tender Respiratory/Chest: No Respiratory Distress, Lungs Clear, Normal Breath Sounds Cardiovascular: Regular Rate, Rhythm, No Edema, No Murmur GI/Abdominal Exam: Normal Bowel Sounds, Soft, No Distention, Other (1-2+ tender epigastrium, 1+ tender at R flank and LUQ) Back Exam: Normal Inspection, Full Range of Motion, NT Extremities: Normal Inspection, Normal Range of Motion, Non-Tender, No Pedal Edema, Other (turgor wnl) Neurological: Alert, Oriented, CN II-XII Intact, Normal Cognition, No Motor/Se nsory Deficits Psychiatric: Normal Affect, Normal Mood Skin Exam: Warm, Dry, Intact, Normal Color, No Rash Lymphatic: No Adenopathy Course - Vital Signs Last Recorded V/S: Last Vital Signs Temp Pulse 106 H 10/10/20 05:15 Resp 16 10/10/20 05:15 BP 138/104 H 10/10/20 05:15 Pulse Ox 100 10/10/20 05:15 - Orders/Labs/Meds Labs: Laboratory Tests 10/10/20 10/10/20 10/10/20 Range/Units 04:53 04:53 04:53 WBC 7.6 (3.2-10.1) x10-3/uL RBC 4.26 (3.90-5.90) x10(6)uL Hgb 12.3 L (12.9-17.7) g/dL Hct 37.8 L (38.3-50.1) % MCV 88.7 (80.8-98.7) fL MCH 29.0 (27.0-33.3) pg MCHC 32.7 (28.7-35.3) g/dL RDW 19.5 H (12.4-15.0) % Plt Count 304 (117-477) x10(3)uL MPV 7.9 (6.7-11.0) fL Neut % (Auto) 47.5 (40.3-71.8) % Lymph % (Auto) 32.0 (15.8-45.3) % [place] % (Auto) 12.4 (5.5-15.2) % Eos % (Auto) 7.6 H (0.1-6.8) % Baso % (Auto) 0.5 (0.3-3.8) % Neut # (Auto) 3.6 (1.7-6.9) x10-3/uL Lymph # (Auto) 2.4 (0.5-4.5) x10-3/uL [place] # (Auto) 0.9 (0.0-1.2) x10-3/uL Eos # (Auto) 0.6 (0.0-0.6) x10-3/uL Baso # (Auto) 0.0 (0.0-0.3) x10-3/uL Sodium 140 (135-145) mmol/L Potassium 4.3 D (3.5-5.3) mmol/L Chloride 103 (100-110) mmol/L Carbon Dioxide 28 (21-32) mmol/L BUN 6 L (7-18) mg/dL Creatinine 1.1 (0.70-1.30) mg/dL Est Cr Clr Drug Dosing 75.53 mL/min Estimated GFR (MDRD) > 60 (>60) BUN/Creatinine Ratio 5.5 L (9-20) Glucose 100 (80-116) mg/dL Calcium 9.2 (8.6-10.2) mg/dL Magnesium 2.1 (1.8-2.5) mg/dL Total Bilirubin 0.3 (0.1-1.3) mg/dL AST 53 H D (5-25) IU/L ALT 31 D (12-36) U/L Alkaline Phosphatase 130 H (56-112) IU/L C-Reactive Protein < 0.2 L (0.5-0.9) mg/dL Total Protein 7.6 (6.0-8.0) g/dL Albumin 3.3 L (3.5-5.2) g/dL Globulin 4.3 g/dL Albumin/Globulin Ratio 0.8 Lipase 1287 H (73-393) U/L Urine Color (YELLOW) Urine Appearance (CLEAR) Urine pH (5.0-6.5) Ur Specific [place] (1.010-1.025) Urine Protein (NEGATIVE) mg/dL Urine Glucose (UA) (NORMAL) mg/dL Urine Ketones (NEGATIVE) mg/dL Urine Occult Blood (NEGATIVE) Urine Nitrite (NEGATIVE) Urine Bilirubin (NEGATIVE) Urine Urobilinogen (NEGATIVE) mg/dL Ur Leukocyte Esterase (NEGATIVE) Urine RBC (0-5) Urine WBC (0-5) Ur Squamous Epith Cells (NS,R,O) Urine Bacteria (NS) Fine Granular Casts (NS) Urine Mucus (NS) Urine Opiates Screen (NEGATIVE) Ur Oxycodone Screen (NEGATIVE) Ur Propoxyphene Screen (NEGATIVE) Ur Barbituates Screen (NEGATIVE) Ur Tricyclics Screen (NEGATIVE) Ur Phencyclidine Scrn (NEGATIVE) Ur Amphetamine Screen (NEGATIVE) Urine MDMA Screen (NEGATIVE) U Benzodiazepines Scrn (NEGATIVE) U Cocaine Metab Screen (NEGATIVE) U Marijuana (THC) Screen (NEGATIVE) Ethyl Alcohol (<0.03) % 10/10/20 10/10/20 10/10/20 Range/Units 04:53 05:50 05:50 WBC (3.2-10.1) x10-3/uL RBC (3.90-5.90) x10(6)uL Hgb (12.9-17.7) g/dL Hct (38.3-50.1) % MCV (80.8-98.7) fL MCH (27.0-33.3) pg MCHC (28.7-35.3) g/dL RDW (12.4-15.0) % Plt Count (117-477) x10(3)uL MPV (6.7-11.0) fL Neut % (Auto) (40.3-71.8) % Lymph % (Auto) (15.8-45.3) % [place] % (Auto) (5.5-15.2) % Eos % (Auto) (0.1-6.8) % Baso % (Auto) (0.3-3.8) % Neut # (Auto) (1.7-6.9) x10-3/uL Lymph # (Auto) (0.5-4.5) x10-3/uL [place] # (Auto) (0.0-1.2) x10-3/uL Eos # (Auto) (0.0-0.6) x10-3/uL Baso # (Auto) (0.0-0.3) x10-3/uL Sodium (135-145) mmol/L Potassium (3.5-5.3) mmol/L Chloride (100-110) mmol/L Carbon Dioxide (21-32) mmol/L BUN (7-18) mg/dL Creatinine (0.70-1.30) mg/dL Est Cr Clr Drug Dosing mL/min Estimated GFR (MDRD) (>60) BUN/Creatinine Ratio (9-20) Glucose (80-116) mg/dL Calcium (8.6-10.2) mg/dL Magnesium (1.8-2.5) mg/dL Total Bilirubin (0.1-1.3) mg/dL AST (5-25) IU/L ALT (12-36) U/L Alkaline Phosphatase (56-112) IU/L C-Reactive Protein (0.5-0.9) mg/dL Total Protein (6.0-8.0) g/dL Albumin (3.5-5.2) g/dL Globulin g/dL Albumin/Globulin Ratio Lipase (73-393) U/L Urine Color Yellow (YELLOW) Urine Appearance Clear (CLEAR) Urine pH 7.0 H (5.0-6.5) Ur Specific [place] 1.005 L (1.010-1.025) Urine Protein Negative (NEGATIVE) mg/dL Urine Glucose (UA) Normal (NORMAL) mg/dL Urine Ketones Negative (NEGATIVE) mg/dL Urine Occult Blood Negative (NEGATIVE) Urine Nitrite Negative (NEGATIVE) Urine Bilirubin Negative (NEGATIVE) Urine Urobilinogen Normal (NEGATIVE) mg/dL Ur Leukocyte Esterase Negative (NEGATIVE) Urine RBC 0-5 (0-5) Urine WBC 0-5 (0-5) Ur Squamous Epith Cells Rare (NS,R,O) Urine Bacteria Few H (NS) Fine Granular Casts Occasional H (NS) Urine Mucus Few H (NS) Urine Opiates Screen Negative (NEGATIVE) Ur Oxycodone Screen Negative (NEGATIVE) Ur Propoxyphene Screen Negative (NEGATIVE) Ur Barbituates Screen Negative (NEGATIVE) Ur Tricyclics Screen Negative (NEGATIVE) Ur Phencyclidine Scrn Negative (NEGATIVE) Ur Amphetamine Screen Negative (NEGATIVE) Urine MDMA Screen Negative (NEGATIVE) U Benzodiazepines Scrn Positive H (NEGATIVE) U Cocaine Metab Screen Negative (NEGATIVE) U Marijuana (THC) Screen Positive H (NEGATIVE) Ethyl Alcohol < 0.03 (<0.03) % Meds: Medications Discontinued Medications Generic Name Dose Route Start Last Admin Trade Name Freq PRN Reason Stop Dose Admin Al Hydroxide/Mg Hydroxide 30 0 ml 10/10/20 04:37 10/10/20 05:02 ml/ Lidocaine HCl 15 ml PO 10/10/20 04:38 30 ml ONETIME ONE Administration Gabapentin 300 mg 10/10/20 04:37 10/10/20 05:03 Neurontin PO 10/10/20 04:38 300 mg ONETIME ONE Administration Hydromorphone HCl 1 mg 10/10/20 06:30 Dilaudid IVPUSH 10/10/20 06:31 ONETIME ONE Sodium Chloride 1,000 mls @ 999 mls/hr 10/10/20 04:36 10/10/20 05:02 Normal Saline IV 10/10/20 05:36 999 mls/hr .BOLUS ONE Administration Ketorolac Tromethamine 30 mg 10/10/20 04:36 10/10/20 05:03 Toradol IVPUSH 10/10/20 04:37 30 mg ONETIME ONE Administration Ondansetron HCl 4 mg 10/10/20 04:38 10/10/20 05:03 Zofran IVPUSH 10/10/20 04:39 4 mg ONETIME ONE Administration - Re-Assessments/Exams Free Text/Narrative Re-Assessment/Exam: 10/10/20 06:35 tolerated gabapentin 300 mg PO and Toradol 30 mg IV without sedation, pain still 6-8, asked regarding Dilaudid lipase 3x ULN now, was 2x ULN in [place] this past week Dilaudid 1 mg IV given not seen PCP Dr Snow at ID [facility], had done phone visits with his nurse, says that the ID is now scheduling in person visits, has appointment with Dr Snow on 10/30, says he is going to alc tx at [place] shortly there after utox with THC and benzo, not on a benzo says he has ondansetron ODT 4 mg at home, still has oxycodone 5 mg 2 tabs at home CRP wnl, as it was this past week in [place] as well HR down to 93, on amlodipine for HTN plans to go to gfriend's house as "she keeps me from drinking" Departure - Departure Time of Disposition: 06:59 Disposition: Home, Self-Care 01 Condition: Good Clinical Impression: Acute on chronic pancreatitis, Elevated lipase, Pancreatic pseudocyst, Alcohol abuse - Discharge Information *PRESCRIPTION DRUG MONITORING PROGRAM REVIEWED*: Yes *COPY OF PRESCRIPTION DRUG MONITORING REPORT IN PATIENT ANDRESSA: No Instructions: Acute Pancreatitis, Pancreatitis Eating Plan Forms: ED Department Discharge Additional Instructions: Continue current meds. Avoid alcohol and fats. Clear liquid diet today. Contact your PCP today for ongoing treatment and recommendations. Sepsis Event Note (ED) - Evaluation Sepsis Screening Result: No Definite Risk - Focused Exam Vital Signs: Vital Signs Pulse Resp BP Pulse Ox 10/10/20 05:15 106 H 16 138/104 H 100 10/10/20 03:33 109 H 18 139/105 H 100
[2020-10-10] MEDS ORDERED: HYDROmorphone 2 MG/ML SDV IVPUSH ONE (06:30)
== END 2020-10-10 06:55 | disposition home or self-care (01) ==
LOC: FB.ED 03:33
DX: K85.90 Acute pancreatitis without necrosis or infection, unspecified (principal); K86.1 Other chronic pancreatitis; R74.8 Abnormal levels of other serum enzymes; K86.3 Pseudocyst of pancreas; F10.10 Alcohol abuse, uncomplicated; Z88.1 Allergy status to other antibiotic agents; Z88.5 Allergy status to narcotic agent; Z88.8 Allergy status to other drugs, medicaments and biological substances; Z79.899 Other long term (current) drug therapy; Z72.0 Tobacco use
CPT/HCPCS: 36415; 80053; 80305-QW; 80307; 81001; 83690; 83735; 85025; 86140; 96374; 96375; 99284; 99284-25; A9270-GY; J1170; J1885; J2405; J7030

== ENCOUNTER 2020-10-28 20:05 | Emergency (ER) | payer OTHER ==
[2020-10-28] MEDS ORDERED: Acetaminophen/oxyCODONE 325-5 MG Tab PO ONE (20:06)
[2020-10-28] MEDS: Sodium Chloride 0.9% 10 ML Syringe FLUSH PRN (20:15)
[2020-10-28] MEDS: Sodium Chloride 0.9% 1,000 ML IV SCH (20:15)
[2020-10-28] MEDS: HYDROmorphone 2 MG/ML SDV IVPUSH STA (20:20)
[2020-10-28] MEDS: Pantoprazole 40 MG Vial IVPUSH STA (20:33)
--- NOTE | 2020-10-28 20:33 | EDM.PDOC ---
ED HPI GENERAL MEDICAL PROBLEM - General Stated Complaint: abdominal pain Time Seen by Provider: 10/28/20 20:20 Source of Information: Reports: Patient, EMS History Limitations: Reports: No Limitations - History of Present Illness INITIAL COMMENTS - FREE TEXT/NARRATIVE: Patient presented to the ED because of an abdominal pain. He was diagnosed with acute pancreatitis and stayed at [facility] for a couple of days and was discharged today. Later this afternoon his pain came back,10/10 over the epigastric area and left upper quadrant. There is no nausea and vomiting. He is just taking Zofran ODT without any pain medications. - Related Data Allergies Allergy/AdvReac Type Severity Reaction Status Date / Time cephalexin Allergy Redness Verified 10/10/20 04:12 cyclobenzaprine Allergy Anxiety Verified 10/10/20 04:12 [From Flexeril] dextromethorphan Allergy Anxiety Verified 10/10/20 04:12 morphine Allergy Itching Verified 10/10/20 04:12 Home Meds: Home Meds Potassium Chloride [Klor-Con M20] 20 meq PO BID #20 tab.er 10/29/19 [Rx] Acetaminophen [Extra Strength Non-Aspirin] 1,000 mg PO TID 10/10/20 [History] Amylase/Lipase/Protease [Creon DR 24,000 Unit] 1 cap PO TID 10/10/20 [History] Calcium Carbonate [Tums] 500 mg PO ASDIRECTED PRN 10/10/20 [History] Doxepin [SINEquan] 10 mg PO BEDTIME 10/10/20 [History] Folic Acid 1 mg PO DAILY 10/10/20 [History] Magnesium Oxide 420 mg PO DAILY 10/10/20 [History] Pantoprazole Sodium [Protonix] 40 mg PO DAILY 10/10/20 [History] Sucralfate 1 gm PO TID 10/10/20 [History] buPROPion [Wellbutrin] 75 mg PO BEDTIME 10/10/20 [History] ondansetron HCL [Zofran] 4 mg PO TID PRN 10/10/20 [History] oxyCODONE 5 mg PO BID PRN 10/10/20 [History] oxyCODONE HCl/Acetaminophen [Percocet 2.5-325 mg Tablet] 1 each PO Q4H PRN #10 tablet 10/28/20 [Rx] Past Medical History Other HEENT History: basal cell carcinoma in the nose Other Cardiovascular History: left varicocele Gastrointestinal History: Reports: GERD, Pancreatitis, Other (See Below) Other Gastrointestinal History: BARRETS ESOPH, CHRONIC AND ACUTE PANCREATITIS, Genitourinary History: Reports: Other (See Below) (Varicocele) Psychiatric History: Reports: Addiction, Anxiety, Depression, Panic Attack, PTSD Other Psychiatric History: alcohol withdrawal - Past Surgical History HEENT Surgical History: Reports: Tonsillectomy GI Surgical History: Reports: Appendectomy, Cholecystectomy Musculoskeletal Surgical History: Reports: Shoulder Surgery Other Musculoskeletal Surgeries/Procedures:: shoulder surgery, tendon surgery Social & Family History - Family History Family Medical History: Unobtainable - Caffeine Use Caffeine Use: Reports: None - Living Situation & Occupation Living situation: Reports: ED ROS GENERAL - Review of Systems Review Of Systems: See Below Constitutional: Reports: No Symptoms HEENT: Reports: No Symptoms Respiratory: Reports: No Symptoms Cardiovascular: Reports: No Symptoms Endocrine: Reports: No Symptoms GI/Abdominal: Reports: Abdominal Pain : Reports: No Symptoms Musculoskeletal: Reports: No Symptoms Skin: Reports: No Symptoms Neurological: Reports: No Symptoms Psychiatric: Reports: No Symptoms ED EXAM, GI/ABD - Physical Exam Exam: See Below Exam Limited By: No Limitations General Appearance: Alert, No Apparent Distress Ears: Normal External Exam, Normal Canal Nose: Normal Inspection, Normal Mucosa Throat/Mouth: Normal Inspection, Normal Lips, Normal Teeth Head: Atraumatic, Normocephalic Neck: Normal Inspection, Supple, Non-Tender, Full Range of Motion Respiratory/Chest: No Respiratory Distress, Lungs Clear, Normal Breath Sounds Cardiovascular: Normal Peripheral Pulses, Regular Rate, Rhythm, No Edema, No Gallop, No JVD, No Murmur, No Rub GI/Abdominal Exam: Normal Bowel Sounds, Soft, No Organomegaly, No Distention, No Abnormal Bruit, Other (tenderness over the epigastric area and LUQ) Back Exam: Normal Inspection, Full Range of Motion Extremities: Normal Inspection, Normal Range of Motion, Non-Tender Course - Vital Signs Text/Narrative:: Labs reviewed and discussed with patient NS 1 L bolus Protonix 80 mg IV Dilaudid 1mg IV x1 - Orders/Labs/Meds Orders: Active Orders 24 hr Category Date Time Status AMYLASE [CHEM] Stat Lab 10/28/20 20:08 Ordered CBC WITH AUTO DIFF [HEME] Stat Lab 10/28/20 20:08 Ordered COMPREHENSIVE METABOLIC PN,CMP [CHEM] Stat Lab 10/28/20 20:08 Ordered ETHANOL BLOOD MEDICAL [CHEM] Stat Lab 10/28/20 20:08 Ordered LIPASE [CHEM] Stat Lab 10/28/20 20:08 Ordered Sodium Chloride 0.9% [Normal Saline] 1,000 ml Med 10/28/20 20:45 Ordered IV ASDIRECTED Sodium Chloride 0.9% [Saline Flush] Med 10/28/20 20:08 Ordered 10 ml FLUSH ASDIRECTED PRN Saline Lock Insert [OM.PC] Routine Oth 10/28/20 20:08 Ordered Medication Orders Sodium Chloride (Sodium Chloride 0.9% 10 Ml Syringe) 10 ml FLUSH ASDIRECTED PRN PRN Reason: Keep Vein Open Meds: Medications Generic Name Dose Route Start Last Admin Trade Name Freq PRN Reason Stop Dose Admin Sodium Chloride 10 ml 10/28/20 20:08 Sodium Chloride 0.9% 10 Ml Syringe FLUSH ASDIRECTED PRN Keep Vein Open Discontinued Medications Generic Name Dose Route Start Last Admin Trade Name Freq PRN Reason Stop Dose Admin Hydromorphone HCl 1 mg 10/28/20 20:10 Hydromorphone 2 Mg/Ml Sdv IVPUSH 10/28/20 20:11 NOW STA Pantoprazole Sodium 80 mg 10/28/20 20:11 Pantoprazole 40 Mg Vial IVPUSH 10/28/20 20:12 NOW STA Departure - Departure Time of Disposition: 21:20 Disposition: Home, Self-Care 01 Condition: Good Clinical Impression: Acute pancreatitis Qualifiers: Pancreatitis type: alcohol induced Acute pancreatitis complication: no infection or necrosis Qualified Code(s): K85.20 - Alcohol induced acute pancreatitis without necrosis or infection - Discharge Information Prescriptions: oxyCODONE HCl/Acetaminophen [Percocet 2.5-325 mg Tablet] 1 each PO Q4H PRN #10 tablet PRN Reason: Pain Additional Instructions: Please read discharge instructions on acute pancreatitis [place] diet Continue carafate/sucralfate for your ulcer and zofran/odansetron for nausea Take percocet 5/325, 1-2 tablets every 4-6 hours as needed for pain Follow up as needed - My Orders Last 24 Hours: My Active Orders 10/28/20 20:08 AMYLASE [CHEM] Stat CBC WITH AUTO DIFF [HEME] Stat COMPREHENSIVE METABOLIC PN,CMP [CHEM] Stat ETHANOL BLOOD MEDICAL [CHEM] Stat LIPASE [CHEM] Stat Sodium Chloride 0.9% [Saline Flush] 10 ml FLUSH ASDIRECTED PRN Saline Lock Insert [OM.PC] Routine 10/28/20 20:45 Sodium Chloride 0.9% [Normal Saline] 1,000 ml IV ASDIRECTED - Assessment/Plan Last 24 Hours: My Active Orders 10/28/20 20:08 AMYLASE [CHEM] Stat CBC WITH AUTO DIFF [HEME] Stat COMPREHENSIVE METABOLIC PN,CMP [CHEM] Stat ETHANOL BLOOD MEDICAL [CHEM] Stat LIPASE [CHEM] Stat Sodium Chloride 0.9% [Saline Flush] 10 ml FLUSH ASDIRECTED PRN Saline Lock Insert [OM.PC] Routine 10/28/20 20:45 Sodium Chloride 0.9% [Normal Saline] 1,000 ml IV ASDIRECTED
[2020-10-28] MEDS: Ketorolac 30 MG/ML SDV IVPUSH STA (21:20)
== END 2020-10-28 21:45 | disposition home or self-care (01) ==
LOC: FB.ED 20:05
DX: K85.20 Alcohol induced acute pancreatitis without necrosis or infection (principal); K21.9 Gastro-esophageal reflux disease without esophagitis; Z88.1 Allergy status to other antibiotic agents; Z88.8 Allergy status to other drugs, medicaments and biological substances; Z88.5 Allergy status to narcotic agent; Z79.899 Other long term (current) drug therapy
CPT/HCPCS: 36415; 80053; 80307; 82150; 83690; 85025; 96374; 96375; 99284; A9270; C9113; J1170; J1885; J7030

== ENCOUNTER 2022-02-16 09:20 | Emergency (ER) | payer OTHER ==
[2022-02-16] MEDS ORDERED: Sodium Chloride 0.9% 10 ML Syringe FLUSH PRN (09:41)
[2022-02-16] MEDS ORDERED: HYDROmorphone 2 MG/ML SDV IVPUSH STA (09:42)
[2022-02-16] MEDS ORDERED: Ondansetron 4 MG/2 ML SDV IVPUSH STA (09:42)
[2022-02-16] MEDS ORDERED: Ketorolac 30 MG/ML SDV IVPUSH STA (09:44)
[2022-02-16] MEDS ORDERED: Sodium Chloride 0.9% 1,000 ML IV SCH (09:45)
[2022-02-16 10:14] LABS: ESTIMATED GFR 100 mL/min (>60)
[2022-02-16] MEDS ORDERED: Potassium Chloride 20 MEQ Tab.ER PO STA (10:43)
[2022-02-16] MEDS ORDERED: Magnesium Sulfate/Water 4 GM in Premix Bag 1 BAG IV ONE (11:08)
[2022-02-16] MEDS ORDERED: Potassium Chloride 20 MEQ Tab.ER PO ONE ×2 (13:00→15:00)
== END 2022-02-16 15:05 | disposition home or self-care (01) ==
LOC: FB.ED 09:20
DX: K86.1 Other chronic pancreatitis (principal); E87.6 Hypokalemia; E83.42 Hypomagnesemia; K21.9 Gastro-esophageal reflux disease without esophagitis; Z88.1 Allergy status to other antibiotic agents; Z88.5 Allergy status to narcotic agent; Z88.8 Allergy status to other drugs, medicaments and biological substances
CPT/HCPCS: 36415; 80053; 82150; 83690; 83735; 85025; 96361; 96365; 96366; 96375; 99284; A9270; J1170; J1885; J2405; J3475; J7030

== ENCOUNTER 2022-02-23 15:29 | Emergency (ER) | payer OTHER ==
[2022-02-23] MEDS ORDERED: Ketorolac 30 MG/ML SDV IVPUSH ONE (15:50)
[2022-02-23] MEDS ORDERED: Ondansetron 4 MG/2 ML SDV IVPUSH ONE (15:50)
[2022-02-23] MEDS ORDERED: Acetaminophen/oxyCODONE 325-5 MG Tab PO PRN (15:53)
[2022-02-23] MEDS ORDERED: Sodium Chloride 0.9% 1,000 ML IV SCH (16:00)
[2022-02-23 16:30] LABS: ESTIMATED GFR 107 mL/min (>60)
== END 2022-02-23 17:10 | disposition home or self-care (01) ==
LOC: FB.ED 15:29
DX: K86.1 Other chronic pancreatitis (principal); Z88.1 Allergy status to other antibiotic agents; Z88.8 Allergy status to other drugs, medicaments and biological substances; Z88.5 Allergy status to narcotic agent; Z90.49 Acquired absence of other specified parts of digestive tract
CPT/HCPCS: 36415; 80053; 82150; 83690; 83735; 85025; 96361; 96374; 96375; 99284; A9270; J1885; J2405; J7030

== ENCOUNTER 2022-02-25 14:23 | Emergency (ER) | payer OTHER ==
[2022-02-25] MEDS ORDERED: Sodium Chloride 0.9% 10 ML Syringe FLUSH PRN (14:29)
[2022-02-25] MEDS ORDERED: Sodium Chloride 0.9% 1,000 ML IV SCH (14:30)
[2022-02-25] MEDS ORDERED: Ketorolac 30 MG/ML SDV IVPUSH ONE (14:30)
[2022-02-25] MEDS ORDERED: Acetaminophen/oxyCODONE 325-5 MG Tab PO STA (14:36)
[2022-02-25 15:15] LABS: ESTIMATED GFR 103 mL/min (>60)
[2022-02-25] MEDS ORDERED: Potassium Chloride 20 MEQ Tab.ER PO STA (15:27)
== END 2022-02-25 16:55 ==
LOC: FB.ED 14:23
DX: K85.90 Acute pancreatitis without necrosis or infection, unspecified (principal); E87.6 Hypokalemia; K21.9 Gastro-esophageal reflux disease without esophagitis; Z88.1 Allergy status to other antibiotic agents; Z88.5 Allergy status to narcotic agent; Z88.8 Allergy status to other drugs, medicaments and biological substances; Z90.49 Acquired absence of other specified parts of digestive tract; Z20.822 Contact with and (suspected) exposure to COVID-19
CPT/HCPCS: 36415; 71045; 80053; 80307; 81001; 82150; 83690; 85025; 87635; 96361; 96374; 99285; A9270; J1885; J7030; U0002

== ENCOUNTER 2022-05-02 10:56 | Emergency (ER) | payer OTHER ==
[2022-05-02] MEDS ORDERED: Sodium Chloride 0.9% 1,000 ML IV ONE (11:49)
[2022-05-02 12:05] LABS: ESTIMATED GFR 78 mL/min (>60)
[2022-05-02] MEDS ORDERED: Ketorolac 30 MG/ML SDV IVPUSH ONE (12:32)
== END 2022-05-02 13:30 | disposition home or self-care (01) ==
LOC: FB.ED 10:56
DX: K85.90 Acute pancreatitis without necrosis or infection, unspecified (principal); J90 Pleural effusion, not elsewhere classified; Z88.1 Allergy status to other antibiotic agents; Z88.8 Allergy status to other drugs, medicaments and biological substances; Z88.6 Allergy status to analgesic agent; Z86.16 Personal history of COVID-19; Z90.49 Acquired absence of other specified parts of digestive tract
CPT/HCPCS: 36415; 71046; 80053; 80307; 85025; 86140; 96361; 96374; 99284; J1885; J7030

== ENCOUNTER 2022-07-29 15:25 | Inpatient (IN) | payer OTHER ==
[2022-07-29] MEDS ORDERED: LORazepam 2 MG/ML SDV IVPUSH STA ×2 (15:39→16:16)
[2022-07-29] MEDS ORDERED: Multivitamin Tab PO ONE (16:00)
[2022-07-29] MEDS ORDERED: Thiamine 100 MG Tab PO ONE (16:00)
[2022-07-29] MEDS ORDERED: Magnesium Oxide 400 MG Tab PO ONE (16:00)
[2022-07-29] MEDS ORDERED: Sodium Chloride 0.9% 1,000 ML IV SCH ×2 (16:00→16:45)
[2022-07-29 16:14] LABS: ESTIMATED GFR 59 mL/min (>60)
[2022-07-29] MEDS ORDERED: Folic Acid 1 MG Tab PO ONE (16:15)
[2022-07-29] MEDS ORDERED: Diazepam 5 MG Tab PO ONE ×2 (16:18→20:35)
[2022-07-29 16:49] LABS: CORONAVIRUS COVID-19 NAA NEGATIVE (NEGATIVE)
[2022-07-29] MEDS ORDERED: Magnesium Sulfate/Water 50 ML IV ONE (17:00)
[2022-07-29] MEDS: Piperacillin/Tazobactam 3.375 GM in Sodium Chloride 0.9% 50 ML IV SCH ×2 (17:07→22:19)
[2022-07-29] MEDS: Pantoprazole 40 MG Vial IV SCH (17:09)
[2022-07-29] MEDS: VANCOmycin 1 GM/200 ML 200 ML IV SCH (17:39)
[2022-07-29] MEDS ORDERED: Morphine 2 MG/ML SYRINGE IVPUSH PRN (17:46)
[2022-07-29] MEDS ORDERED: hydrOXYzine HCl 50 MG/ML SDV IM ONE (18:31)
[2022-07-29] MEDS: NS + KCl 20mEq/L 1,000 ML IV SCH (19:39)
[2022-07-29] MEDS: Ondansetron 4 MG/2 ML SDV IV PRN (20:12)
[2022-07-29] MEDS: Enoxaparin 40 MG/0.4 ML Syringe SUBCUT SCH (21:22)
[2022-07-29] MEDS: LORazepam 2 MG/ML SDV IVPUSH PRN ×2 (21:23→22:52)
[2022-07-30] MEDS: LORazepam 1 MG Tab PO PRN ×5 (00:15→21:30)
[2022-07-30] MEDS: NS + KCl 20mEq/L 1,000 ML IV SCH ×2 (03:46→14:40)
[2022-07-30] MEDS: Piperacillin/Tazobactam 3.375 GM in Sodium Chloride 0.9% 50 ML IV SCH ×4 (03:47→22:13)
[2022-07-30] MEDS: VANCOmycin 1 GM/200 ML 200 ML IV SCH ×2 (05:11→17:38)
[2022-07-30 07:13] LABS: ESTIMATED GFR 103 mL/min (>60)
[2022-07-30] MEDS ORDERED: Potassium Chloride 20 MEQ Tab.ER PO SCH (10:00)
[2022-07-30] MEDS: Potassium Chloride 20 MEQ Tab.ER PO SCH ×2 (10:10→20:11)
[2022-07-30] MEDS: Folic Acid/Vitamin B Complex With C Cap PO SCH (10:12)
[2022-07-30] MEDS: valACYclovir 1,000 MG Tab PO SCH ×3 (10:12→20:11)
[2022-07-30] MEDS: Pantoprazole 40 MG Vial IV SCH (16:43)
[2022-07-30] MEDS: Enoxaparin 40 MG/0.4 ML Syringe SUBCUT SCH (17:38)
[2022-07-30] MEDS: Ondansetron 4 MG/2 ML SDV IV PRN (22:55)
[2022-07-31] MEDS: NS + KCl 20mEq/L 1,000 ML IV SCH ×2 (00:22→08:03)
[2022-07-31] MEDS: Piperacillin/Tazobactam 3.375 GM in Sodium Chloride 0.9% 50 ML IV SCH (04:06)
[2022-07-31] MEDS: LORazepam 1 MG Tab PO PRN ×4 (05:00→12:23)
[2022-07-31] MEDS: VANCOmycin 1 GM/200 ML 200 ML IV SCH (05:57)
[2022-07-31 06:46] LABS: ESTIMATED GFR 103 mL/min (>60)
[2022-07-31] MEDS: Folic Acid/Vitamin B Complex With C Cap PO SCH (08:39)
[2022-07-31] MEDS: Potassium Chloride 20 MEQ Tab.ER PO SCH (08:39)
[2022-07-31] MEDS: valACYclovir 1,000 MG Tab PO SCH ×2 (08:40→13:41)
[2022-07-31] MEDS ORDERED: Acetaminophen/Aspirin/Caffeine 250-250-65 MG Tab PO ONE (09:02)
[2022-07-31] MEDS ORDERED: Acetaminophen/Aspirin/Caffeine 250-250-65 MG Tab PO PRN (10:49)
[2022-07-31] MEDS ORDERED: Potassium Chloride 20 MEQ Tab.ER PO SCH (14:00)
[2022-07-31] MEDS: Pantoprazole 40 MG Vial IV SCH ×2 (16:18→16:40)
== END 2022-07-31 17:18 | disposition left against medical advice (07) | DRG 894 ==
LOC: FB.ED 15:25 → FB.MS 17:47 → OBSVTOIN 07-30 09:50
PROVIDERS: ADMIT Emergency Medicine; ATTEND Student in an Organized Health Care Education/Training Program
DX: F10.230 Alcohol dependence with withdrawal, uncomplicated (principal); F10.239 Alcohol dependence with withdrawal, unspecified; Y90.9 Presence of alcohol in blood, level not specified; N17.9 Acute kidney failure, unspecified; B00.2 Herpesviral gingivostomatitis and pharyngotonsillitis; K86.0 Alcohol-induced chronic pancreatitis; F41.9 Anxiety disorder, unspecified; R11.2 Nausea with vomiting, unspecified; F41.1 Generalized anxiety disorder; E88.09 Other disorders of plasma-protein metabolism, not elsewhere classified; Z79.899 Other long term (current) drug therapy; E87.6 Hypokalemia; K29.20 Alcoholic gastritis without bleeding; K22.70 Barrett's esophagus without dysplasia; K21.9 Gastro-esophageal reflux disease without esophagitis; I86.1 Scrotal varices; K70.10 Alcoholic hepatitis without ascites; N52.9 Male erectile dysfunction, unspecified; F32.A Depression, unspecified; Z20.822 Contact with and (suspected) exposure to COVID-19; F43.10 Post-traumatic stress disorder, unspecified; Z86.16 Personal history of COVID-19; Z86.19 Personal history of other infectious and parasitic diseases; Z85.828 Personal history of other malignant neoplasm of skin; Z90.49 Acquired absence of other specified parts of digestive tract; Z88.8 Allergy status to other drugs, medicaments and biological substances; Z98.890 Other specified postprocedural states; Z88.1 Allergy status to other antibiotic agents; Z87.891 Personal history of nicotine dependence; F10.282 Alcohol dependence with alcohol-induced sleep disorder
CPT/HCPCS: 0240U; 36415; 71045; 80053; 80202; 80307; 81001; 82150; 82550; 83605; 83690; 83735; 84100; 84132; 85025; 85610; 85730; 86140; 87040; 93005; 96361; 96365; 96372; 96375; 96376; 99285-25; A9270-GY; C9113; J1650; J2060; J2405; J2543; J3370; J3410; J3475; J3480; J7030